=== PATIENT | female | born 1995 | race African-American/Black ===

== ENCOUNTER 2017-11-07 07:11 | Emergency (ER) | payer BC ==
[~2017-11-07] VITALS: Ht 157.5 cm; Wt 77.3 kg
[2017-11-07 07:15] VITALS: TEMP 99
[2017-11-07] MEDS ORDERED: PEPCID 20MG TAB20 MG PO (07:19)
[2017-11-07] MEDS ORDERED: PRIL40 PO (07:19)
[2017-11-07 07:58] LABS: BASO % 0.3 % (0.0-2.0); EOS # 0.1 (0.0-0.7); EOS % 1.4 % (0-4.0); GRAN % 69.1 % (42.2-75.2); LYMPH # 1.9 (1.2-3.4); LYMPH % 18.5 % (20.0-51.0); MEAN CELL VOLUME 69 fl (80.0-100.0); MEAN CORPUSCULAR HGB CONC 29 g/dl (33.0-37.0); MEAN PLATELET VOLUME 9.2 fl (7.4-10.4); MONO # 1.1 (0.1-0.6); MONO % 10.3 % (1.7-9.3); PLATELET COUNT 337 K/mm3 (130-400); RED BLOOD COUNT 4.11 M/mm3 (4.10-5.30); REDCELL DISTRIBUTION WIDTH-CV 19.1 % (11.5-14.5)
[2017-11-07 08:00] LABS: HEMATOCRIT 28.5 % (37.0-47.0); HEMOGLOBIN 8.2 g/dl (12.5-16.0); MEAN CORPUSCULAR HEMOGLOBIN 20 pg (27.0-31.0)
[2017-11-07 08:02] LABS: ALBUMIN 3.9 gm/dL (3.5-5.0); BILIRUBIN,TOTAL 0.3 mg/dL (0.0-1.0); CREATININE, serum 0.74 mg/dL (0.52-1.25); POTASSIUM 4.2 mmol/L (3.4-5.0); TOTAL PROTEIN 7.4 gm/dL (6.4-8.2)
[2017-11-07 08:33] LABS: COLLECTION METHOD CLEAN CATCH
[2017-11-07] MEDS ORDERED: LIORESAL 1010 MG/TAB PO (08:33)
[2017-11-07 08:57] LABS: MUCOUS Present /lpf; PH 6 (5-8); URINE APPEARANCE Clear; URINE BACTERIA None Seen /hpf; URINE BILIRUBIN Negative (NEGATIVE); URINE BLOOD Negative (NEGATIVE); URINE COLOR Yellow; URINE GLUCOSE Negative (NEGATIVE); URINE KETONE Negative (NEGATIVE); URINE LEUKOCYTE ESTERASE Negative (NEGATIVE); URINE NITRATE Negative (NEGATIVE); URINE PROTEIN(semi-quant) Negative (NEGATIVE); URINE RBC 0-2 /hpf; URINE UROBILINOGEN Negative (NEGATIVE); URINE WBC 0-2 /hpf
[2017-11-07] MEDS ORDERED: FERROCITE324 MG PO (09:08)
[2017-11-07 09:18] VITALS: BP 122/82; PULSE 83
== END 2017-11-07 09:20 | disposition home or self-care (01) ==
LOC: COL.ER 07:11
PROVIDERS: Emergency Medicine
DX: R10.32 Left lower quadrant pain (principal); D64.9 Anemia, unspecified; Z87.42 Personal history of other diseases of the female genital tract

== ENCOUNTER 2018-01-21 19:02 | Observation (INO) | payer BC ==
[~2018-01-21] VITALS: Ht 157.5 cm; Wt 75.7 kg
[~2018-01-21 19:02] MED LIST: FERROCITE324 MG PO; LIORESAL 1010 MG/TAB PO; PEPCID 20MG TAB20 MG PO; PRIL40 PO
[2018-01-21 19:41] LABS: COLLECTION METHOD CLEAN CATCH
[2018-01-21 19:48] LABS: MUCOUS Present /lpf; PH 5 (5-8); SQUAMOUS EPITHELIAL 0-2 /hpf; URINE APPEARANCE Clear; URINE BACTERIA None Seen /hpf; URINE BILIRUBIN Negative (NEGATIVE); URINE BLOOD Negative (NEGATIVE); URINE COLOR Yellow; URINE GLUCOSE Negative (NEGATIVE); URINE KETONE Trace (NEGATIVE); URINE LEUKOCYTE ESTERASE Trace (NEGATIVE); URINE NITRATE Negative (NEGATIVE); URINE PROTEIN(semi-quant) Negative (NEGATIVE); URINE RBC 0-2 /hpf; URINE UROBILINOGEN Negative (NEGATIVE)
[2018-01-21 20:45] LABS: BASO % 0.2 % (0.0-2.0); EOS # 0.1 (0.0-0.7); EOS % 0.9 % (0-4.0); GRAN # 5.6 (1.4-6.5); GRAN % 64.8 % (42.2-75.2); LYMPH # 1.9 (1.2-3.4); LYMPH % 21.8 % (20.0-51.0); MEAN CELL VOLUME 76 fl (80.0-100.0); MEAN CORPUSCULAR HGB CONC 30 g/dl (33.0-37.0); MONO % 12.1 % (1.7-9.3); PLATELET COUNT 272 K/mm3 (130-400); RED BLOOD COUNT 3.85 M/mm3 (4.10-5.30); REDCELL DISTRIBUTION WIDTH-CV 20.7 % (11.5-14.5)
[2018-01-21 20:56] LABS: HEMATOCRIT 29.1 % (37.0-47.0); HEMOGLOBIN 8.7 g/dl (12.5-16.0); MEAN CORPUSCULAR HEMOGLOBIN 23 pg (27.0-31.0)
[2018-01-21 21:07] LABS: ALANINE AMINOTRANSFERASE 32 U/L (9-52); ALBUMIN 3.3 gm/dL (3.5-5.0); ALKALINE PHOSPHATASE 44 U/L (50-136); ANION GAP 6 mmol/L (7-16); AST,SGOT 20 U/L (15-37); BILIRUBIN,TOTAL < 0.1 mg/dL (0.0-1.0); BLOOD UREA NITROGEN 9 mg/dL (7-17); C-REACTIVE PROTEIN 1.6 mg/dL (0.0-0.9); CALCIUM 8.2 mg/dL (8.4-10.2); CARBON DIOXIDE 22 mmol/L (22-30); CHLORIDE 108 mmol/L (98-107); CREATININE, serum 0.68 mg/dL (0.52-1.25); GLUCOSE 85 mg/dL (74-106); LIPASE 42 U/L (23-300); POTASSIUM 3.8 mmol/L (3.4-5.0); SODIUM 135 mmol/L (137-145); TOTAL PROTEIN 6.3 gm/dL (6.4-8.2)
[2018-01-21 22:33] VITALS: BP 109/58; PULSE 76; TEMP 99.5
[2018-01-22] VITALS (12 sets, daily range): BP systolic 99–131; BP diastolic 57–89; PULSE 76–92; TEMP 98.6–99.6
[2018-01-22] MEDS ORDERED: NORCO 325 MG-51 TAB PO (14:45)
[2018-01-22] MEDS ORDERED: MOTRIN 600600 MG/TAB PO (14:46)
[2018-01-23 04:00] VITALS: BP 109/66; PULSE 72; TEMP 98.1
[2018-01-23 08:22] VITALS: BP 106/57; PULSE 83; TEMP 98
== END 2018-01-23 10:30 | disposition home or self-care (01) ==
LOC: COL.ER 19:02 → SURG 20:55 → COL.ER 20:55 → SURG 20:55
PROVIDERS: Physician Assistant
DX: K35.33 Acute appendicitis with perforation, localized peritonitis, and gangrene, with abscess (principal); D25.9 Leiomyoma of uterus, unspecified; K21.9 Gastro-esophageal reflux disease without esophagitis; D50.9 Iron deficiency anemia, unspecified
CPT/HCPCS: J1100; J1885; J2250; J2405; J2543; J2550; J2704; J3010; J7030; Q9967